=== PATIENT | female | born 1950 | race American Indian/Alaskan Native ===

== ENCOUNTER 2017-10-24 10:43 | Emergency (ER) | payer MEDICARE ==
[2017-10-24] MEDS ORDERED: Metoprolol 1 mg/ml Inj IVP STA (10:55)
[2017-10-24 10:56] VITALS: TEMP 98
--- NOTE | 2017-10-24 10:57 | ED PDOC ---
Arrival/HPI - General Chief Complaint: Chest Pain Time Seen by Provider: 10/24/17 10:44 Historian: Patient - History of Present Illness Narrative History of Present Illness (Text): 10/24/17 11:49 Patient is a 67 yo female with past medical history significant for diabetes, CABG, cardiac stents, presents to the Emergency Department with chest pain that developed while walking in a store prior to arrival. Pain described as severe, substernal, nonradiating. She describes having pain yesterday that was "mild" and improved with taking a nitroglycerin. She states pain that she felt today is similar to episodes in the past. Has sensation of shortness of breath. Denies sweats or nausea. Denies numbness or tingling. Denies back pain. Pain did not resolve today after taking Nitroglycerin. Patient did take her aspirin and plavix this morning. Time/Duration: Prior to Arrival Symptom Onset: Sudden Quality: Pressure Past Medical History - Provider Review Nursing Documentation Reviewed: Yes - Infectious Disease Hx of Infectious Diseases: None - Reproductive Menopause: Yes - Cardiac Hx VA: Yes Hx Hypertension: Yes Other/Comment: cardiac stent - Psychiatric Hx Substance Use: No - Surgical History Hx Open Heart Surgery: Yes Family/Social History - Physician Review Nursing Documentation Reviewed: Yes Family/Social History: No Known Family HX Smoking Status: Unknown If Ever Smoked Hx Alcohol Use: No Hx Substance Use: No Allergies/Home Meds Allergies/Adverse Reactions: Allergies latex Allergy (Verified 10/24/17 10:54) RASH Latex, Natural Rubber Allergy (Verified 10/24/17 10:54) RASH strwberry, Allergy (Uncoded 10/24/17 10:54) RASH Home Medications: Home Meds Medication Instructions Recorded Confirmed Unobtainable 10/24/17 10/24/17 Review of Systems - Review of Systems Constitutional: Fatigue. absent: Fevers Respiratory: SOB. absent: Cough Cardiovascular: Chest Pain, WAN. absent: Palpitations, Edema, Calf Pain Gastrointestinal: absent: Abdominal Pain, Nausea, Vomiting Genitourinary Female: absent: Dysuria, Frequency Musculoskeletal: absent: Arthralgias, Back Pain, Neck Pain Neurological: absent: Headache, Dizziness Physical Exam - Physical Exam Narrative Physical Exam (Text): 10/24/17 10:56 Head: Atraumatic. Normocephalic. Eyes: PERRL. EOMI. Conjunctivae are not pale. ENT: Mucous membranes are moist and intact. Oropharynx is clear and symmetric. Neck: Supple. Full ROM. No JVD. No lymphadenopathy. Cardiovascular: Tachycardic. Systolic murmur. Pulmonary/Chest: Tachypneic. No wheezes, rales or rhonchi. No respiratory distress. Sternal scar. Abdominal: Soft and non-distended. There is no tenderness. No rebound, guarding, or rigidity. No organomegaly. Good bowel sounds. Back: No CVA tenderness. Extremities: No edema. No cyanosis. No clubbing. Full range of motion in all extremities. No calf tenderness. Skin: Skin is warm and dry. No petechiae. No purpura. Neurological: Alert, awake. Motor and sensory exam intact. Psychiatric: Good eye contact. Normal interaction, affect, and behavior. Vital Signs Reviewed: Yes Vital Signs Temp Pulse Resp BP Pulse Ox 10/24/17 15:36 96 H 17 134/80 98 10/24/17 13:53 98 H 17 131/77 97 10/24/17 12:49 100 H 17 143/83 97 10/24/17 11:09 96 H 147/81 10/24/17 10:56 147/87 10/24/17 10:55 98 F 110 H 18 99 Temperature: Afebrile Pulse: Tachycardic Appearance: Positive for: Ill-Appearing, Uncomfortable Pain Distress: Moderate Medical Decision Making ED Course and Treatment: 10/24/17 11:57 Patient seen immediately upon arrival. History obtained from patient as well as [facility] personnel. Patient noted to have significant past cardiac history. On intial evaluation she is stating "I don't want to be in this hospital I want to be at [facility] I told them please take me there". Patient allowed me to perform a history and physical, and treatment plan to obtain emergent EKG, chest xray and labs, and monitor patient reviewed with patient, she was agreeable to this. Initial EKG reveals a sinus tachycardia with t wave abnormality, no prior EKG for comparison. Patient states her hat block maker is Dr. Beltran from [facility], by patient permission I called her hat block maker at this stage to inform him of patient's presentation and obtain further history. As per Dr. Beltran, patient had stent placement in February of this year. I confirmed patient took aspirin and plavix prior to arrival. IV lopressor ordered with improvement in heart rate. Serial exams performed q 10 minutes and patient had improvement in pain, at 11: 45 chest pain completely resolved. I have updated patient on treatment plan which is continued monitoring of vital signs and symptoms. Labs pending at this time. 10/24/17 13:54 Patient on re-evaluation remains pain free. Patient's chest xray unremarkable. Heart rate 80-90. Blood pressure stable. No dyspnea. I have reviewed labs, chest xray, EKG with patient and Dr. Simona Beltran, her hat block maker. Patient's hat block maker based out of [facility], the patient and her hat block maker request transfer to [facility] as her physicians are present at that facility. Dr. Carolann Beltran has accepted patient for transfer to [facility]. Patient will receive dose of Lovenox in ED, risks/benefits reviewed. 10/24/17 15:24 Re-evaluated. Remains pain free. Awaiting transport team. Patient updated. - Critical Care Critical Care Minutes: 30 minutes - Lab Interpretations Lab Results: 10/24/17 11:07 10/24/17 13:10 Lab Results 10/24/17 13:10: Sodium 141, Potassium 3.9, Chloride 104, Carbon Dioxide 26, Anion Gap 15, BUN 17, Creatinine 0.9, Est GFR ( Amer) > 60, Est GFR (Non- Af Amer) > 60, Random Glucose 117 H, Calcium 9.6, Total Bilirubin 0.7, AST 65 H D, ALT 40, Alkaline Phosphatase 70, Lactate Dehydrogenase 485, Total Creatine Kinase 110, Troponin I 0.03 D, Total Protein 8.5 H, Albumin 4.4, Globulin 4.1, Albumin/Globulin Ratio 1.1 10/24/17 12:50: Blood Type B POSITIVE, Antibody Screen Negative, BBK History Checked No verified bt 10/24/17 11:30: Urine Color Yellow, Urine Appearance Sl cloudy, Urine pH 7.0, Ur Specific [place] 1.020, Urine Protein Negative, Urine Glucose (UA) Negative, Urine Ketones Negative, Urine Blood Negative, Urine Nitrate Negative, Urine Bilirubin Negative, Urine Urobilinogen 0.2, Ur Leukocyte Esterase Negative 10/24/17 11:07: Sodium 141, Potassium 4.1, Chloride 103, Carbon Dioxide 26, Anion Gap 16, BUN 18, Creatinine 0.9, Est GFR ( Amer) > 60, Est GFR (Non- Af Amer) > 60, Random Glucose 136 H, Calcium 9.7, Magnesium 1.5 L, Total Bilirubin 0.9, AST 35, ALT 36, Alkaline Phosphatase 69, Lactate Dehydrogenase 654, Total Creatine Kinase 118, Troponin I < 0.01, NT-Pro-B Natriuret Pep 128, Total Protein 8.9 H, Albumin 4.6, Globulin 4.3, Albumin/Globulin Ratio 1.1 10/24/17 11:07: PT 11.3, INR 1.03, APTT 23.1 L 10/24/17 11:07: WBC 5.0, RBC 4.43, Hgb 12.9, Hct 39.4, MCV 88.9, MCH 29.1, MCHC 32.7, RDW 13.2, Plt Count 246, MPV 10.9, Gran % 49.0 L, Lymph % (Auto) 41.7 H, Mckinley % (Auto) 8.1 H, Eos % (Auto) 0.8 L, Baso % (Auto) 0.4, Gran # 2.43, Lymph # 2.1, Mckinley # 0.4, Eos # 0.0, Baso # 0.02 - RAD Interpretation Radiology Orders: 10/24/17 10:54 CHEST PORTABLE [RAD] Stat Paralegals: Radiologist - EKG Interpretation Interpreted by ED Physician: Yes Type: 12 lead EKG Comparison: No previous EKG avail. - Medication Orders Current Medication Orders: Discontinued Medications Enoxaparin Sodium (Lovenox) 90 mg SC STAT STA PRN Reason: Protocol Stop: 10/24/17 13:58 Last Admin: 10/24/17 15:14 Dose: 90 mg Subcutaneous Administrations Document 10/24/17 15:14 SF (Rec: 10/24/17 15:14 SF [id number]) Injection Site MAR Injection Site Left Abdomen Charges for Administration # of Subcutaneous Administrations 1 Metoprolol Tartrate (Lopressor) 5 mg IVP STAT STA Stop: 10/24/17 10:56 Last Admin: 10/24/17 11:09 Dose: 5 mg IVP Administration Document 10/24/17 11:09 SF (Rec: 10/24/17 11:16 SF [id number]) Charges for Administration # of IVP Administrations 1 MAR Pulse and Blood Pressure Document 10/24/17 11:09 SF (Rec: 10/24/17 11:16 SF [id number]) Pulse Pulse Rate (60-90) 96 Blood Pressure Blood Pressure (100/60-150/90) 147/81 Potassium Chloride (K-Dur 20 Meq Er Tab) 40 meq PO STAT STA Stop: 10/24/17 14:17 Last Admin: 10/24/17 15:14 Dose: 40 meq - Scribe Statement The provider has reviewed the documentation as recorded by the Nicoleibnimo Zhang Provider Scribe Attestation: All medical record entries made by the Scribe were at my direction and personally dictated by me. I have reviewed the chart and agree that the record accurately reflects my personal performance of the history, physical exam, medical decision making, and the department course for this patient. I have also personally directed, reviewed, and agree with the discharge instructions and disposition. Disposition/Present on Arrival - Present on Arrival Any Indicators Present on Arrival: No History of DVT/PE: No History of Uncontrolled Diabetes: No Urinary Catheter: No History of Decub. Ulcer: No History Surgical Site Infection Following: None - Disposition Have Diagnosis and Disposition been Completed?: Yes Diagnosis: Chest pain Disposition: Transfer [facility] Disposition Time: 13:57 Patient Plan: Transfer To Condition: SERIOUS Discharge Instructions (ExitCare): Chest Pain (ED) Referrals: Carolina Calero, [Non-Staff] - Follow up with primary Forms: Soft [facility]eneration (Slovak)
[2017-10-24 12:16] LABS: BASO # 0.02 K/mm3 (0.0-2.0); BASO % 0.4 % (0.0-3.0); EOS % 0.8 % (1.5-5.0); GRAN # 2.43 (1.4-6.5); HEMATOCRIT 39.4 % (36.0-48.0); LYMPH # 2.1 (1.2-3.4); LYMPH % 41.7 % (22.0-35.0); MEAN CELL VOLUME 88.9 fl (80.0-105.0); MEAN CORPUSCULAR HEMOGLOBIN 29.1 pg (25.0-35.0); MEAN CORPUSCULAR HGB CONC 32.7 g/dl (31.0-37.0); MEAN PLATELET VOLUME 10.9 fl (7.0-11.0); MONO # 0.4 (0.1-0.6); MONO % 8.1 % (1.0-6.0); RED CELL DISTRIBUTION WIDTH 13.2 % (11.5-14.5)
[2017-10-24 12:22] LABS: URINE APPEARANCE SL CLOUDY (CLEAR); URINE BILIRUBIN NEGATIVE (NEGATIVE); URINE BLOOD NEGATIVE (NEGATIVE); URINE COLOR YELLOW (YELLOW); URINE GLUCOSE (UA) NEGATIVE (NEGATIVE); URINE KETONE NEGATIVE (NEGATIVE); URINE LEUKOCYTE ESTERASE NEGATIVE Leu/uL (NEGATIVE); URINE PROTEIN NEGATIVE mg/dL (<30 mg/dL); URINE UROBILINOGEN 0.2 E.U./dL (<1 E.U./dL)
[2017-10-24 12:32] LABS: INR 1.03 (0.93-1.08); PARTIAL THROMBOPLASTIN TIME 23.1 Seconds (25.1-36.5)
--- NOTE | 2017-10-24 12:44 | RAD ---
HISTORY: chest pain COMPARISON: No prior. FINDINGS: LUNGS: No active pulmonary disease. PLEURA: No significant pleural effusion identified, no pneumothorax apparent. CARDIOVASCULAR: Mild cardiomegaly. Status post CABG. OSSEOUS STRUCTURES: No significant abnormalities. VISUALIZED UPPER ABDOMEN: Normal. OTHER FINDINGS: None. IMPRESSION: No active disease.
[2017-10-24 12:53] VITALS: RESP 17
[2017-10-24 12:57] LABS: BLOOD UREA NITROGEN 18 mg/dL (7-21); CARBON DIOXIDE 26 mmol/L (21-33); CHLORIDE 103 mmol/L (98-107); GFR AFRICAN-AMERICAN > 60; GLUCOSE,RANDOM 136 mg/dL (70-110); SODIUM 141 mmol/L (132-148)
[2017-10-24 12:58] LABS: ALB/GLOB RATIO 1.1 (1.1-1.8); BILIRUBIN,TOTAL 0.9 mg/dL (0.2-1.3); CALCIUM 9.7 mg/dL (8.4-10.5); MAGNESIUM 1.5 mg/dL (1.7-2.2); TOTAL PROTEIN 8.9 g/dL (5.8-8.3)
[2017-10-24 12:59] LABS: ALKALINE PHOSPHATASE 69 U/L (38-126); ALT/SGPT 36 U/L (7-56); AST/SGOT 35 U/L (14-36); TROPONIN I < 0.01 ng/mL
[2017-10-24 13:02] LABS: POTASSIUM 4.1 mmol/L (3.6-5.0)
[2017-10-24 13:40] LABS: ALB/GLOB RATIO 1.1 (1.1-1.8); ALKALINE PHOSPHATASE 70 U/L (38-126); ALT/SGPT 40 U/L (7-56); AST/SGOT 65 U/L (14-36); BILIRUBIN,TOTAL 0.7 mg/dL (0.2-1.3); BLOOD UREA NITROGEN 17 mg/dL (7-21); CALCIUM 9.6 mg/dL (8.4-10.5); CARBON DIOXIDE 26 mmol/L (21-33); CHLORIDE 104 mmol/L (98-107); GFR AFRICAN-AMERICAN > 60; GLUCOSE,RANDOM 117 mg/dL (70-110); POTASSIUM 3.9 mmol/L (3.6-5.0); SODIUM 141 mmol/L (132-148); TOTAL PROTEIN 8.5 g/dL (5.8-8.3)
[2017-10-24 13:41] LABS: TROPONIN I 0.03 ng/mL
[2017-10-24] MEDS ORDERED: Enoxaparin 100 mg Syringe SC STA (13:57)
[2017-10-24] MEDS ORDERED: Potassium Chloride 20 mEq ER Tab PO STA (14:16)
[2017-10-24 15:38] VITALS: BP 134/80; O2SAT 98
[2017-10-24 15:52] VITALS: PULSE 96
--- NOTE | 2017-10-25 10:39 | CARD ---
APPROVED REPORT EKG Measurement Heart [id number] <Conclusion> Sinus tachycardia Possible Left atrial enlargement Cannot rule out Anteroseptal infarct, age undetermined T wave abnormality, consider lateral ischemia Abnormal ECG
== END 2017-10-24 16:00 | disposition short-term general hospital (02) ==
LOC: ED 10:43
DX: R07.9 Chest pain, unspecified (principal); I25.2 Old myocardial infarction; I10 Essential (primary) hypertension; Z95.1 Presence of aortocoronary bypass graft
CPT/HCPCS: 71010; 80053; 81003; 82550; 83615; 83735; 83880; 84484; 85025; 85610; 85730; 86850; 86900; 93005; 96372; 96374; 99285; J1650